=== PATIENT | male | born 1995 | race African-American/Black ===

== ENCOUNTER 2025-01-04 00:40 | Emergency (ER) | payer MEDICAID, OTHER ==
[~2025-01-04] VITALS: Ht 180.3 cm; Wt 86.2 kg
[2025-01-04 01:02] VITALS: TEMP 98
[2025-01-04] MEDS ORDERED: HYDROMORPHONE 1 MG/1 ML DISP.SYRIN ONE (03:16)
[2025-01-04] MEDS ORDERED: ONDANSETRON 4 MG TAB.RAPDIS ONE (03:16)
[2025-01-04] MEDS: HYDROMORPHONE 1 MG/1 ML DISP.SYRIN IM ONE (03:20)
[2025-01-04] MEDS: ONDANSETRON 4 MG TAB.RAPDIS SL ONE (03:20)
[2025-01-04] MEDS ORDERED: NAPR-1009 PO (06:14)
[2025-01-04 06:37] VITALS: BP 113/66; O2SAT 99
== END 2025-01-04 06:37 | disposition home or self-care (01) ==
LOC: ER 00:46
DX: S80.812A Abrasion, left lower leg, initial encounter (principal); W22.8XXA Striking against or struck by other objects, initial encounter; Y93.89 Activity, other specified; Y92.410 Unspecified street and highway as the place of occurrence of the external cause; Y99.8 Other external cause status
CPT/HCPCS: 99285; 73700; 96372; Q0162; J1171